=== PATIENT | female | born 1980 | race Caucasian/White ===

== ENCOUNTER → 2019-11-20 09:08 | Outpatient (CLI) | payer BC ==
[~2019-11-20 09:08] MED LIST: [UNRECOGNIZED DRUG - OTHER] PO
[2019-11-22 10:32] VITALS: BMI 28.2
== END | disposition home or self-care (01) ==
LOC: D.LAB 09:08
PROVIDERS: ATTEND Podiatrist
DX: Z11.59 Encounter for screening for other viral diseases (principal)

== ENCOUNTER 2019-11-22 09:46 | Day surgery (SDC) | payer BC ==
[~2019-11-22] VITALS: Ht 170.2 cm; Wt 81.6 kg
--- NOTE | ~2019-11-22 | OP ---
PATIENT NAME: MELODY JAIN MEDICAL RECORD: [id number] :84 LOCATION:[facility] ADMISSION DATE: SURGEON: KWABENA DIANA DATE OF OPERATION: 11/22/2019 SURGEON: Kwabena Diana DPM PREOPERATIVE DIAGNOSIS: Hallux abductovalgus, right foot. POSTOPERATIVE DIAGNOSIS: Hallux abductovalgus, right foot. PROCEDURE: Awais bunionectomy, right foot. ANESTHESIA: Local with monitored anesthesia care. HEMOSTASIS: Pneumatic ankle tourniquet inflated to 250 mmHg. ESTIMATED BLOOD LOSS: Minimal. MATERIALS: A 3-0 Vicryl, 4-0 Vicryl, 4-0 nylon. INJECTABLES: 20 cc of 0.5% bupivacaine plain. The patient presents today for surgical correction of a chronically painful right bunion deformity. We have discussed the risks and benefits of the procedure. Complications were reviewed. All questions were answered. She was appropriately consented for the above-mentioned procedure. The patient was brought to the operating room and placed on the operating table in supine position. A timeout was called with Dr. Diana, who identified the patient, the surgical site, and surgery to be performed. Once appropriate anesthesia was obtained, the foot was prepped and draped in the usual aseptic manner. The pneumatic ankle tourniquet was inflated to 250 mmHg on the well-padded right ankle. Attention was directed to the dorsal aspect of the first metatarsophalangeal joint where a 6 cm curvilinear incision was made just medial to the extensor hallucis longus tendon. This incision was carried deep to soft tissue with care being taken to retract all vital neurovascular structures. All bleeders were cauterized along the way. The first intermetatarsal space was then entered utilizing both sharp and blunt dissection, the fibular sesamoidal ligament was identified and sharply transected. Attention was then directed further proximally to the level of the abductor hallucis tendon. This was identified at the base of the proximal phalanx and sharply transected. Attention was then redirected dorsally where the periosteum was freed from the head of the first metatarsal and the base of the proximal phalanx, thus exposing the first metatarsophalangeal joint. The head of the first metatarsal was noted to be hypertrophied. Utilizing a sagittal saw, the hypertrophied medial eminence was removed. Attention was directed to the medial aspect of the first metatarsal head where a V-shaped osteotomy was created in the head of the first metatarsal with the apex oriented distally. This is a through and through osteotomy. The capital fragment was translocated laterally and impacted upon the first metatarsal shaft. Next, utilizing manufacture's recommended technique, one 2.5 OPERATIVE REPORT [id number] COTTON,MELODY x 14 mm headless Dart-Fire screw ([employer]) was placed across the osteotomy. All remaining overhanging bone from the medial aspect of first metatarsal shaft was then removed with a bone saw. All remaining sharp bone edges were smoothed with a rasp. The surgical site was then irrigated with copious amounts of normal sterile saline. The periosteum was then reapproximated and coapted using 3-0 Vicryl. The subQ was then reapproximated and coapted using 4-0 Vicryl. The skin was then reapproximated and coapted using 4-0 nylon. A dressing consisting of Xeroform, 4 x 4's, Kerlix, and Coban was applied to the right foot. The pneumatic ankle tourniquet was deflated and cap refill time is immediate to all digits of the right foot. The patient tolerated the procedure and anesthesia well. She left the operating room with vital signs stable and capillary refill time intact. The patient was discharged home with instructions to ice and elevate the right foot. She was dispensed a boot to further offload the foot. She has my cell phone number for any afterhours difficulties. She has an appointment for next Monday in the office. She was provided with a prescription for [place] 5/325, ibuprofen 800 mg, and Phenergan 25 mg. There were no complications procedure. We will follow up with her next week. TRANSINT:[id number] Voice Confirmation ID: [id number] DOCUMENT ID: [id number] KWABENA DIANA CC: [id number] DICTATION DATE: 11/22/19 1328 VARIOUS EXCEPTIONALITIES TEACHER: 11/23/19 0150 [facility] 11/22/19 [facility] [address] [id number]
[2019-11-22 10:14] LABS: HEMATOCRIT 39.7 % (36.0-48.0); HEMOGLOBIN 13.1 g/dL (12-16); MCH 28.2 pg (26.0-34.0); MCV 85.4 fL (80.0-100.0); MEAN PLATELET VOLUME 9.4 fL (7.4-10.4); RBC 4.65 10x6/uL (4.00-5.40); RDW 14.3 % (11.5-14.5); WBC 6.4 10x3/uL (4.8-10.8)
[2019-11-22 10:23] LABS: HCG SERUM NEGATIVE (NEGATIVE)
[2019-11-22 10:32] VITALS: Ht 170.2 cm; Wt 81.6 kg
--- NOTE | 2019-11-22 17:19 | NUR ---
1447 MEDICATED FOR PAIN. 1605 IV REMOVED AND PRESSURE REMOVED. 1620 D/C HOME
== END 2019-11-22 16:20 | disposition home or self-care (01) ==
LOC: D.OPS 09:46
PROVIDERS: Anesthesiology; ATTEND Podiatrist
DX: M20.11 Hallux valgus (acquired), right foot (principal); M79.671 Pain in right foot